=== PATIENT | male | born 1995 | race African-American/Black ===

== ENCOUNTER 2017-02-18 01:03 | Emergency (ER) | payer OTHER ==
[~2017-02-18] VITALS: Ht 170.2 cm; Wt 61.2 kg
[~2017-02-18 01:03] MED LIST: DAY TIME COLD-237 ML PO; IBUPROFEN 600600 M1 PO; ZOFRAN ODT4 MG PO; ZPAK PO
[2017-02-18 01:09] VITALS: BP 145/77
[2017-02-18 01:16] LABS: URINE BILIRUBIN NEGATIVE (Negative); URINE BLOOD TRACE (Negative); URINE COLOR YELLOW; URINE GLUCOSE-RANDOM* NEGATIVE (Negative); URINE KETONES NEGATIVE (Negative); URINE LEUKOCYTES-REFLEX 2+ (Negative); URINE PROTEIN (DIPSTICK) NEGATIVE (Negative); URINE SPECIFIC GRAVITY 1.025 (1.003-1.035); URINE UROBILINOGEN 0.2 E.U./dl (0.2-1.0)
[2017-02-18 01:36] LABS: SQUAMOUS None Seen /LPF (0-3); URINE WBC-REFLEX >25 Many /HPF (0-5)
[2017-02-18 01:37] LABS: CASTS None Seen /LPF (None Seen); CRYSTALS None Seen /LPF (None Seen); URINE RBC 0-2 Rare /HPF (0-2)
[2017-02-18] MEDS ORDERED: KEFLEX500 MG PO (01:38)
== END 2017-02-18 01:57 | disposition home or self-care (01) ==
LOC: ER 01:03
PROVIDERS: Emergency Medicine
DX: N39.0 Urinary tract infection, site not specified (principal)

== ENCOUNTER 2017-05-03 01:14 | Emergency (ER) | payer OTHER ==
[~2017-05-03] VITALS: Ht 170.2 cm; Wt 63.5 kg
[~2017-05-03 01:14] MED LIST changes: +KEFLEX500 MG PO; +NAPROSYN500 MG PO
[2017-05-03 02:50] LABS: URINE BILIRUBIN NEGATIVE (Negative); URINE BLOOD NEGATIVE (Negative); URINE COLOR YELLOW; URINE GLUCOSE-RANDOM* NEGATIVE (Negative); URINE KETONES NEGATIVE (Negative); URINE LEUKOCYTES-REFLEX NEGATIVE (Negative); URINE PROTEIN (DIPSTICK) NEGATIVE (Negative); URINE UROBILINOGEN 0.2 E.U./dl (0.2-1.0)
[2017-05-03 03:22] LABS: ABSOLUTE NEUTROPHILS 3.9 thou/uL (1.4-8.2); EOSINOPHILS 0.7 % (0.0-3.0); HEMATOCRIT 45.2 % (42.0-52.0); HEMOGLOBIN 15.4 gm/dL (14.0-18.0); LYMPHOCYTES 34.4 % (24.0-44.0); MCH 32.8 pg (26.0-34.0); MCV 96.4 fL (80.0-100.0); MONOCYTES 7.3 % (1.0-8.0); PLATELET COUNT 225 thou/uL (150-400); POLYS 56.6 % (36.0-66.0); RBC 4.69 mil/uL (4.50-6.00); RDW 13.4 % (10.5-14.5)
[2017-05-03 03:27] LABS: MANUAL DIFF NO
[2017-05-03 03:28] LABS: CALCIUM 8.9 mg/dL (8.5-10.1); CREATININE 0.8 mg/dL (0.7-1.3); POTASSIUM 3.8 mmol/L (3.5-5.1)
[2017-05-03 03:33] LABS: ALBUMIN 3.8 g/dL (3.4-5.0); TOTAL BILIRUBIN 0.3 mg/dL (<0.1-1.0); TOTAL PROTEIN 6.6 g/dL (6.4-8.2)
[2017-05-03] MEDS ORDERED: NAPROSYN500 MG PO (03:53)
[2017-05-03 05:02] VITALS: BP 119/55
== END 2017-05-03 05:03 | disposition home or self-care (01) ==
LOC: ER 01:14
PROVIDERS: Emergency Medicine
DX: R10.30 Lower abdominal pain, unspecified (principal); M79.651 Pain in right thigh; M79.652 Pain in left thigh; N50.819 Testicular pain, unspecified

== ENCOUNTER 2017-06-20 16:04 | Emergency (ER) | payer OTHER ==
[~2017-06-20] VITALS: Ht 170.2 cm; Wt 63.5 kg
[2017-06-20 16:30] LABS: URINE BILIRUBIN NEGATIVE (Negative); URINE BLOOD NEGATIVE (Negative); URINE CLARITY CLEAR; URINE COLOR YELLOW; URINE GLUCOSE-RANDOM* NEGATIVE (Negative); URINE KETONES NEGATIVE (Negative); URINE LEUKOCYTES-REFLEX NEGATIVE (Negative); URINE NITRITE-REFLEX NEGATIVE (Negative); URINE PROTEIN (DIPSTICK) NEGATIVE (Negative)
== END 2017-06-20 17:20 | disposition home or self-care (01) ==
LOC: ER 16:04
PROVIDERS: Physician Assistant
DX: R30.0 Dysuria (principal)